=== PATIENT | female | born 1950 | race Caucasian/White ===

== ENCOUNTER 2017-06-18 09:29 | Outpatient (CLI) | payer OTHER ==
[~2017-06-18 09:29] MED LIST: ALLEGRA30 MG; CATAFLAM50 MG PO; CLONAZEPAM2 MG PO; ESTRACE42.5 GM; HYZAAR 100/25 T1 TAB PO; LOCOID15 GM; NEURONTIN300 MG PO; NORFLEX30 MG/ML IJ; NORVASC10 MG PO; PAXIL20 MG PO; PRILOSEC20 MG PO; SINGULAIR10 MG PO; SYNTHROID50 MCG PO; TOPROL XL25 M1; ULTRAM50 MG PO; VOLTAREN50 MG PO
== END 2017-06-18 09:33 | disposition home or self-care (01) ==
LOC: SONOGRAMA 09:29
DX: E04.2 Nontoxic multinodular goiter (principal)

== ENCOUNTER → 2017-06-21 13:34 | Outpatient (CLI) | payer OTHER | END | disposition home or self-care (01) | LOC: LAB 13:34 | DX: J11.1 Influenza due to unidentified influenza virus with other respiratory manifestations (principal); J45.31 Mild persistent asthma with (acute) exacerbation ==

== ENCOUNTER → 2017-06-21 13:36 | Outpatient (CLI) | payer OTHER | END | disposition home or self-care (01) | LOC: RAD 13:36 | DX: J11.1 Influenza due to unidentified influenza virus with other respiratory manifestations (principal); J45.31 Mild persistent asthma with (acute) exacerbation ==

== ENCOUNTER 2018-02-23 09:18 | Outpatient (CLI) | payer OTHER | END 2018-02-23 09:25 | disposition home or self-care (01) | LOC: LAB 09:18 | DX: E11.65 Type 2 diabetes mellitus with hyperglycemia (principal); E78.2 Mixed hyperlipidemia; D68.8 Other specified coagulation defects; E03.8 Other specified hypothyroidism; C18.7 Malignant neoplasm of sigmoid colon; Z85.038 Personal history of other malignant neoplasm of large intestine; D51.8 Other vitamin B12 deficiency anemias; Z86.010 Personal history of colon polyps; E55.9 Vitamin D deficiency, unspecified; I10 Essential (primary) hypertension; F41.3 Other mixed anxiety disorders; R97.0 Elevated carcinoembryonic antigen [CEA]; D51.1 Vitamin B12 deficiency anemia due to selective vitamin B12 malabsorption with proteinuria; D51.0 Vitamin B12 deficiency anemia due to intrinsic factor deficiency; D50.8 Other iron deficiency anemias; K90.89 Other intestinal malabsorption ==

== ENCOUNTER 2018-03-08 09:03 | Outpatient (CLI) | payer OTHER | END 2018-03-08 09:08 | disposition home or self-care (01) | LOC: SONOGRAMA 09:03 | DX: E04.2 Nontoxic multinodular goiter (principal) ==

== ENCOUNTER 2018-03-16 10:35 | Outpatient (CLI) | payer OTHER | END 2018-03-16 10:50 | disposition home or self-care (01) | LOC: MAMO-SONO 10:35 | DX: Z12.31 Encounter for screening mammogram for malignant neoplasm of breast (principal); Z87.898 Personal history of other specified conditions; N60.01 Solitary cyst of right breast ==

== ENCOUNTER → 2018-05-18 | Outpatient (CLI) | payer OTHER | END | disposition home or self-care (01) | LOC: RAD 10:20 | DX: M17.0 Bilateral primary osteoarthritis of knee (principal) ==

== ENCOUNTER 2018-06-30 20:01 | Emergency (ER) | payer OTHER ==
[~2018-06-30] VITALS: Ht 157.5 cm; Wt 113.4 kg
== END 2018-07-01 15:37 | disposition home or self-care (01) ==
LOC: ER 20:01
DX: K52.89 Other specified noninfective gastroenteritis and colitis (principal); B34.9 Viral infection, unspecified; R10.32 Left lower quadrant pain

== ENCOUNTER 2018-11-21 10:23 | Outpatient (CLI) | payer OTHER | END 2018-11-21 10:27 | disposition home or self-care (01) | LOC: TOM 10:23 | DX: J45.40 Moderate persistent asthma, uncomplicated (principal); R01.2 Other cardiac sounds ==

== ENCOUNTER 2019-03-22 10:49 | Outpatient (CLI) | payer OTHER | END 2019-03-22 11:01 | disposition home or self-care (01) | LOC: MAMO-SONO 10:49 | DX: Z12.31 Encounter for screening mammogram for malignant neoplasm of breast (principal); Z87.898 Personal history of other specified conditions; Z12.39 Encounter for other screening for malignant neoplasm of breast; E04.2 Nontoxic multinodular goiter ==

== ENCOUNTER 2019-08-21 11:03 | Outpatient (CLI) | payer OTHER | END 2019-08-21 11:10 | disposition home or self-care (01) | LOC: LAB 11:03 | DX: E11.65 Type 2 diabetes mellitus with hyperglycemia (principal); D64.89 Other specified anemias; N39.0 Urinary tract infection, site not specified; E03.8 Other specified hypothyroidism; E78.2 Mixed hyperlipidemia; Z12.11 Encounter for screening for malignant neoplasm of colon; R00.2 Palpitations; I11.9 Hypertensive heart disease without heart failure; C18.7 Malignant neoplasm of sigmoid colon; Z85.038 Personal history of other malignant neoplasm of large intestine; D51.8 Other vitamin B12 deficiency anemias; Z86.010 Personal history of colon polyps; E55.9 Vitamin D deficiency, unspecified; F41.3 Other mixed anxiety disorders; R97.0 Elevated carcinoembryonic antigen [CEA]; D50.8 Other iron deficiency anemias; D51.1 Vitamin B12 deficiency anemia due to selective vitamin B12 malabsorption with proteinuria; D51.0 Vitamin B12 deficiency anemia due to intrinsic factor deficiency ==

== ENCOUNTER 2019-08-23 10:43 | Outpatient (CLI) | payer OTHER | END 2019-08-23 10:46 | disposition home or self-care (01) | LOC: LAB 10:43 | DX: E11.65 Type 2 diabetes mellitus with hyperglycemia (principal); D64.89 Other specified anemias; N39.0 Urinary tract infection, site not specified; E78.2 Mixed hyperlipidemia; Z12.11 Encounter for screening for malignant neoplasm of colon ==

== ENCOUNTER 2020-02-29 07:14 | Outpatient (CLI) | payer OTHER | END 2020-02-29 07:22 | disposition home or self-care (01) | LOC: LAB 07:14 | PROVIDERS: ATTEND Internal Medicine Hematology & Oncology | DX: D50.8 Other iron deficiency anemias (principal); I10 Essential (primary) hypertension; D51.8 Other vitamin B12 deficiency anemias; E55.9 Vitamin D deficiency, unspecified; R97.0 Elevated carcinoembryonic antigen [CEA]; R97.8 Other abnormal tumor markers; C18.7 Malignant neoplasm of sigmoid colon; E51.8 Other manifestations of thiamine deficiency; F41.3 Other mixed anxiety disorders ==

== ENCOUNTER → 2020-04-15 09:37 | Outpatient (CLI) | payer OTHER | END | disposition home or self-care (01) | LOC: LAB 09:37 | PROVIDERS: ATTEND Specialist | DX: E11.65 Type 2 diabetes mellitus with hyperglycemia (principal); D68.8 Other specified coagulation defects; D64.1 Secondary sideroblastic anemia due to disease ==

== ENCOUNTER 2020-06-15 16:33 | Emergency (ER) | payer OTHER ==
[~2020-06-15] VITALS: Ht 152.4 cm; Wt 113.4 kg
[2020-06-15] MEDS ORDERED: CANDESARTAN-HC1 EAC2 (16:40)
[2020-06-15] MEDS ORDERED: ZANAFLEX4 M1 (16:44)
== END 2020-06-15 19:36 | disposition home or self-care (01) ==
LOC: ER 16:33
DX: M48.061 Spinal stenosis, lumbar region without neurogenic claudication (principal); M51.37 Other intervertebral disc degeneration, lumbosacral region; M54.16 Radiculopathy, lumbar region

== ENCOUNTER 2020-07-30 09:40 | Outpatient (CLI) | payer OTHER ==
[~2020-07-30 09:40] MED LIST changes: +CANDESARTAN-HC1 EAC2; +ZANAFLEX4 M1
== END 2020-07-30 09:49 | disposition home or self-care (01) ==
LOC: LAB 09:40
PROVIDERS: ATTEND Specialist
DX: J45.998 Other asthma (principal); N39.0 Urinary tract infection, site not specified; E11.65 Type 2 diabetes mellitus with hyperglycemia; Z20.828 Contact with and (suspected) exposure to other viral communicable diseases; E55.9 Vitamin D deficiency, unspecified; E78.2 Mixed hyperlipidemia; E03.8 Other specified hypothyroidism; Z12.11 Encounter for screening for malignant neoplasm of colon; C18.7 Malignant neoplasm of sigmoid colon; Z85.038 Personal history of other malignant neoplasm of large intestine; D51.8 Other vitamin B12 deficiency anemias; Z86.010 Personal history of colon polyps; I10 Essential (primary) hypertension; F41.3 Other mixed anxiety disorders; R97.0 Elevated carcinoembryonic antigen [CEA]; R97.8 Other abnormal tumor markers; D50.8 Other iron deficiency anemias

== ENCOUNTER 2020-07-31 11:26 | Outpatient (CLI) | payer OTHER | END 2020-07-31 11:28 | disposition home or self-care (01) | LOC: LAB 11:26 | PROVIDERS: ATTEND Specialist | DX: U07.1 COVID-19 (principal); J45.998 Other asthma; E11.65 Type 2 diabetes mellitus with hyperglycemia; N39.0 Urinary tract infection, site not specified; E55.9 Vitamin D deficiency, unspecified; E78.2 Mixed hyperlipidemia; E03.8 Other specified hypothyroidism; Z12.11 Encounter for screening for malignant neoplasm of colon ==

== ENCOUNTER 2020-10-01 10:33 | Outpatient (CLI) | payer OTHER | END 2020-10-01 10:58 | disposition home or self-care (01) | LOC: RAD 10:33 | PROVIDERS: ATTEND Orthopaedic Surgery Adult Reconstructive Orthopaedic Surgery | DX: I11.9 Hypertensive heart disease without heart failure (principal); M16.10 Unilateral primary osteoarthritis, unspecified hip; M17.10 Unilateral primary osteoarthritis, unspecified knee ==

== ENCOUNTER → 2020-10-30 08:50 | Outpatient (CLI) | payer OTHER | END | disposition home or self-care (01) | LOC: LAB 08:50 | PROVIDERS: ATTEND Specialist | DX: E11.65 Type 2 diabetes mellitus with hyperglycemia (principal); E03.8 Other specified hypothyroidism ==

== ENCOUNTER 2021-01-01 11:56 | Outpatient (CLI) | payer OTHER | END 2021-01-01 12:04 | disposition home or self-care (01) | LOC: SONOGRAMA 11:56 → MAMO-SONO 14:00 | PROVIDERS: ATTEND Specialist | DX: E04.2 Nontoxic multinodular goiter (principal); E03.8 Other specified hypothyroidism ==

== ENCOUNTER 2021-01-28 09:47 | Outpatient (CLI) | payer OTHER | END 2021-01-28 09:53 | disposition home or self-care (01) | LOC: LAB 09:47 | PROVIDERS: ATTEND Specialist | DX: C18.7 Malignant neoplasm of sigmoid colon (principal); E78.2 Mixed hyperlipidemia; E11.65 Type 2 diabetes mellitus with hyperglycemia; D64.89 Other specified anemias; R00.2 Palpitations; E11.9 Type 2 diabetes mellitus without complications; D50.8 Other iron deficiency anemias; I10 Essential (primary) hypertension; R74.02 Elevation of levels of lactic acid dehydrogenase [LDH]; K76.89 Other specified diseases of liver; D51.8 Other vitamin B12 deficiency anemias; E55.9 Vitamin D deficiency, unspecified; R97.0 Elevated carcinoembryonic antigen [CEA]; R97.8 Other abnormal tumor markers; Z85.038 Personal history of other malignant neoplasm of large intestine; Z86.010 Personal history of colon polyps; F41.3 Other mixed anxiety disorders ==

== ENCOUNTER 2021-02-13 09:17 | Outpatient (CLI) | payer OTHER | END 2021-02-13 09:22 | disposition home or self-care (01) | LOC: SONOGRAMA 09:17 | PROVIDERS: ATTEND Pathology Anatomic Pathology & Clinical Pathology | DX: D34 Benign neoplasm of thyroid gland (principal); E07.89 Other specified disorders of thyroid ==

== ENCOUNTER → 2021-03-31 | Outpatient (CLI) | payer OTHER | END | disposition home or self-care (01) | LOC: MAMO-SONO 12:53 | PROVIDERS: ATTEND Internal Medicine Hematology & Oncology | DX: R92.0 Mammographic microcalcification found on diagnostic imaging of breast (principal); Z12.31 Encounter for screening mammogram for malignant neoplasm of breast; R97.0 Elevated carcinoembryonic antigen [CEA]; C18.7 Malignant neoplasm of sigmoid colon; Z85.038 Personal history of other malignant neoplasm of large intestine; D51.8 Other vitamin B12 deficiency anemias; Z86.010 Personal history of colon polyps; E55.9 Vitamin D deficiency, unspecified; I10 Essential (primary) hypertension; F41.3 Other mixed anxiety disorders ==

== ENCOUNTER 2021-07-11 10:51 | Outpatient (CLI) | payer OTHER | END 2021-07-11 11:00 | disposition home or self-care (01) | LOC: LAB 10:51 | PROVIDERS: ATTEND Specialist | DX: J45.998 Other asthma (principal); E03.8 Other specified hypothyroidism; E11.21 Type 2 diabetes mellitus with diabetic nephropathy; N39.8 Other specified disorders of urinary system; E78.2 Mixed hyperlipidemia; E11.65 Type 2 diabetes mellitus with hyperglycemia; Z12.11 Encounter for screening for malignant neoplasm of colon; D64.89 Other specified anemias; D50.8 Other iron deficiency anemias; I10 Essential (primary) hypertension; R74.02 Elevation of levels of lactic acid dehydrogenase [LDH]; K76.89 Other specified diseases of liver; D51.8 Other vitamin B12 deficiency anemias; R97.0 Elevated carcinoembryonic antigen [CEA]; R97.8 Other abnormal tumor markers; C18.7 Malignant neoplasm of sigmoid colon; Z85.038 Personal history of other malignant neoplasm of large intestine; Z86.010 Personal history of colon polyps; E55.9 Vitamin D deficiency, unspecified; F41.3 Other mixed anxiety disorders; R00.2 Palpitations; I11.9 Hypertensive heart disease without heart failure ==

== ENCOUNTER 2021-10-15 09:31 | Outpatient (CLI) | payer OTHER | END 2021-10-15 09:38 | disposition home or self-care (01) | LOC: LAB 09:31 | PROVIDERS: ATTEND Specialist | DX: E03.9 Hypothyroidism, unspecified (principal); N39.9 Disorder of urinary system, unspecified; E78.2 Mixed hyperlipidemia; N25.81 Secondary hyperparathyroidism of renal origin ==

== ENCOUNTER 2022-02-05 09:14 | Outpatient (CLI) | payer OTHER | END 2022-02-05 09:23 | disposition home or self-care (01) | LOC: LAB 09:14 | PROVIDERS: ATTEND Specialist | DX: C18.7 Malignant neoplasm of sigmoid colon (principal); D51.8 Other vitamin B12 deficiency anemias; E55.9 Vitamin D deficiency, unspecified; F41.3 Other mixed anxiety disorders; R97.0 Elevated carcinoembryonic antigen [CEA]; Z86.010 Personal history of colon polyps; R00.2 Palpitations; E78.2 Mixed hyperlipidemia; I11.9 Hypertensive heart disease without heart failure; E11.21 Type 2 diabetes mellitus with diabetic nephropathy; D64.9 Anemia, unspecified; E11.65 Type 2 diabetes mellitus with hyperglycemia; J45.998 Other asthma ==

== ENCOUNTER 2022-05-19 09:19 | Outpatient (CLI) | payer OTHER | END 2022-05-19 09:20 | disposition home or self-care (01) | LOC: LAB 09:19 | PROVIDERS: ATTEND Specialist | DX: E03.8 Other specified hypothyroidism (principal); Z13.220 Encounter for screening for lipoid disorders; E11.69 Type 2 diabetes mellitus with other specified complication; N39.9 Disorder of urinary system, unspecified; D64.89 Other specified anemias; E11.21 Type 2 diabetes mellitus with diabetic nephropathy; M00.80 Arthritis due to other bacteria, unspecified joint ==

== ENCOUNTER 2022-05-19 11:27 | Outpatient (CLI) | payer OTHER | END 2022-05-19 11:33 | disposition home or self-care (01) | LOC: MAMO-SONO 11:27 | PROVIDERS: ATTEND Internal Medicine Hematology & Oncology | DX: Z12.31 Encounter for screening mammogram for malignant neoplasm of breast (principal); N63.0 Unspecified lump in unspecified breast; N64.4 Mastodynia ==

== ENCOUNTER 2022-06-09 16:09 | Emergency (ER) | payer OTHER ==
[~2022-06-09] VITALS: Ht 154.9 cm; Wt 108.9 kg
== END 2022-06-09 20:38 | disposition home or self-care (01) ==
LOC: ER 16:09
DX: R05.9 Cough, unspecified (principal); Z91.013 Allergy to seafood; Z20.822 Contact with and (suspected) exposure to COVID-19; Z88.2 Allergy status to sulfonamides

== ENCOUNTER 2022-09-04 14:19 | Emergency (ER) | payer OTHER ==
[~2022-09-04] VITALS: Ht 157.5 cm; Wt 116.6 kg
== END 2022-09-04 18:46 | disposition home or self-care (01) ==
LOC: ER 14:19
DX: R50.9 Fever, unspecified (principal); R05.9 Cough, unspecified; R30.0 Dysuria; Z88.2 Allergy status to sulfonamides; Z91.013 Allergy to seafood; Z20.822 Contact with and (suspected) exposure to COVID-19

== ENCOUNTER 2022-10-06 09:00 | Outpatient (CLI) | payer OTHER | END 2022-10-06 09:01 | disposition home or self-care (01) | LOC: LAB 09:00 | PROVIDERS: ATTEND Specialist | DX: D50.8 Other iron deficiency anemias (principal); I10 Essential (primary) hypertension; R74.02 Elevation of levels of lactic acid dehydrogenase [LDH]; K76.89 Other specified diseases of liver; D51.8 Other vitamin B12 deficiency anemias; E55.9 Vitamin D deficiency, unspecified; C50.919 Malignant neoplasm of unspecified site of unspecified female breast; R97.8 Other abnormal tumor markers; R97.0 Elevated carcinoembryonic antigen [CEA] ==

== ENCOUNTER 2022-10-06 10:59 | Outpatient (CLI) | payer OTHER | END 2022-10-06 11:00 | disposition home or self-care (01) | LOC: NUCLEAR 10:59 | PROVIDERS: ATTEND Internal Medicine Rheumatology | DX: M81.0 Age-related osteoporosis without current pathological fracture (principal) ==

== ENCOUNTER 2023-01-07 09:32 | Outpatient (CLI) | payer OTHER | END 2023-01-07 09:35 | disposition home or self-care (01) | LOC: LAB 09:32 | PROVIDERS: ATTEND Specialist | DX: E03.8 Other specified hypothyroidism (principal); R07.89 Other chest pain; Z13.220 Encounter for screening for lipoid disorders; D64.89 Other specified anemias; N39.9 Disorder of urinary system, unspecified; E11.69 Type 2 diabetes mellitus with other specified complication; D50.8 Other iron deficiency anemias; I10 Essential (primary) hypertension; R74.02 Elevation of levels of lactic acid dehydrogenase [LDH]; K76.89 Other specified diseases of liver; C18.7 Malignant neoplasm of sigmoid colon; Z85.038 Personal history of other malignant neoplasm of large intestine; D51.8 Other vitamin B12 deficiency anemias; Z86.010 Personal history of colon polyps; E55.9 Vitamin D deficiency, unspecified; F41.3 Other mixed anxiety disorders; R97.0 Elevated carcinoembryonic antigen [CEA] ==

== ENCOUNTER 2023-01-07 10:07 | Outpatient (CLI) | payer OTHER | END 2023-01-07 10:11 | disposition home or self-care (01) | LOC: RAD 10:07 | PROVIDERS: ATTEND Specialist | DX: J45.991 Cough variant asthma (principal) ==

== ENCOUNTER 2023-01-25 13:29 | Outpatient (CLI) | payer OTHER | END 2023-01-25 13:39 | disposition home or self-care (01) | LOC: SONOGRAMA 13:29 | PROVIDERS: ATTEND Internal Medicine Endocrinology, Diabetes & Metabolism | DX: E04.2 Nontoxic multinodular goiter (principal) ==

== ENCOUNTER → 2023-02-04 | Outpatient (CLI) | payer OTHER | END | disposition home or self-care (01) | LOC: SONOGRAMA 09:12 | PROVIDERS: ATTEND Pathology Anatomic Pathology & Clinical Pathology | DX: D34 Benign neoplasm of thyroid gland (principal); E04.9 Nontoxic goiter, unspecified ==

== ENCOUNTER 2023-05-29 09:11 | Outpatient (CLI) | payer OTHER ==
[2023-05-29 10:01] LABS: URINE APPEARANCE Clear; URINE BILIRRUBIN Negative (NEGATIVE); URINE BLOOD Negative; URINE COLOR Yellow; URINE GLUCOSE Negative (NEGATIVE); URINE LEUKOCYTE Trace; URINE NITRATE Negative; URINE PROTEIN Negative (NEGATIVE); URINE UROBILINOGEN 0.2 E.U./dl
[2023-05-29 10:05] LABS: URINE BACTERIA 23.9 uL (0.0-1933); URINE EPITHELIAL CELLS 5.9 uL (0.0-38.8); URINE RBC 5.6 uL (0.0-20.8)
[2023-05-29 10:37] LABS: ALBUMIN 3.6 gm/dL (3.4-5.0); BILIRUBIN TOTAL 0.5 mg/dL (0.3-1.2); CREATININE SERUM 0.73 mg/dL (0.55-1.02); GFR 78.15; GLOBULINA 3.3 G/DL (2.4-3.5); POTASSIUM 4.49 mEq/L (3.5-5.1); TOTAL PROTEIN 6.9 gm/dL (6.4-8.2)
[2023-05-29 11:12] LABS: HEMATOCRIT 42.1 % (36.0-45.00); HEMOGLOBIN 14.2 g/dL (12.0-15.00); MEAN CELL VOLUME 92.2 fL (80.00-100.00); MEAN CORPUSCULAR HEMOGLOBIN 31.1 pg (27.00-32.0); MEAN CORPUSCULAR HGB CONC 33.7 g/dl (32.0-36.0); PLATELET COUNT 257 K/uL (150-450); RED BLOOD COUNT 4.57 M/uL (4.00-6.00); RED CELL DISTRIBUTION WIDTH 14.6 % (11.5-14.5)
== END 2023-05-29 09:19 | disposition home or self-care (01) ==
LOC: LAB 09:11
PROVIDERS: ATTEND Specialist
DX: D64.89 Other specified anemias (principal); E11.69 Type 2 diabetes mellitus with other specified complication; E11.21 Type 2 diabetes mellitus with diabetic nephropathy; N39.9 Disorder of urinary system, unspecified; Z13.220 Encounter for screening for lipoid disorders

== ENCOUNTER 2023-06-18 14:48 | Emergency (ER) | payer OTHER ==
[~2023-06-18] VITALS: Ht 157.5 cm; Wt 113.9 kg
[2023-06-18] MEDS ORDERED: LODINE300 MG PO (15:36)
[2023-06-18 17:25] LABS: URINE APPEARANCE Clear; URINE BILIRRUBIN Negative (NEGATIVE); URINE BLOOD Negative; URINE COLOR Yellow; URINE GLUCOSE Negative (NEGATIVE); URINE LEUKOCYTE Trace; URINE NITRATE Negative; URINE PROTEIN Negative (NEGATIVE); URINE UROBILINOGEN 0.2 E.U./dl
[2023-06-18 17:26] LABS: URINE BACTERIA 30.2 uL (0.0-1933); URINE EPITHELIAL CELLS 2.7 uL (0.0-38.8); URINE RBC 3.4 uL (0.0-20.8); URINE WBC 7.8 uL (0.0-23.2)
[2023-06-18] MEDS ORDERED: ADVIL DUAL ACT1 EACH PO (18:11)
== END 2023-06-18 18:26 | disposition home or self-care (01) ==
LOC: ER 14:49
PROVIDERS: Emergency Medicine
DX: M54.50 Low back pain, unspecified (principal); Z88.2 Allergy status to sulfonamides; Z91.013 Allergy to seafood; E03.9 Hypothyroidism, unspecified; I11.9 Hypertensive heart disease without heart failure; Z87.39 Personal history of other diseases of the musculoskeletal system and connective tissue
CPT/HCPCS: 96365; 96372; 99284; J1885; J2360; J2920

== ENCOUNTER 2024-01-15 09:37 | Outpatient (CLI) | payer OTHER ==
[~2024-01-15 09:37] MED LIST changes: +ADVIL DUAL ACT1 EACH PO; +LODINE300 MG PO
== END 2024-01-15 09:45 | disposition home or self-care (01) ==
LOC: RAD 09:37
PROVIDERS: ATTEND Specialist
DX: J45.22 Mild intermittent asthma with status asthmaticus (principal)

== ENCOUNTER 2024-03-09 09:42 | Outpatient (CLI) | payer OTHER | END 2024-03-09 10:01 | disposition home or self-care (01) | LOC: TOM 09:42 | PROVIDERS: ATTEND Specialist | DX: K57.92 Diverticulitis of intestine, part unspecified, without perforation or abscess without bleeding (principal) | CPT/HCPCS: 74177; Q9965 ==

== ENCOUNTER 2024-04-06 07:26 | Outpatient (CLI) | payer OTHER | END 2024-04-06 07:27 | disposition home or self-care (01) | LOC: NUCLEAR 07:26 | PROVIDERS: ATTEND Specialist | DX: N25.81 Secondary hyperparathyroidism of renal origin (principal); D35.1 Benign neoplasm of parathyroid gland | CPT/HCPCS: 78070; A9500 ==

== ENCOUNTER 2024-05-08 12:58 | Outpatient (CLI) | payer OTHER | END 2024-05-08 13:06 | disposition home or self-care (01) | LOC: MAMO-SONO 12:58 | PROVIDERS: ATTEND Internal Medicine Hematology & Oncology | DX: N63.0 Unspecified lump in unspecified breast (principal); N64.4 Mastodynia; C18.7 Malignant neoplasm of sigmoid colon; Z85.038 Personal history of other malignant neoplasm of large intestine; D51.3 Other dietary vitamin B12 deficiency anemia; Z86.0100 Personal history of colon polyps, unspecified; E55.9 Vitamin D deficiency, unspecified; I10 Essential (primary) hypertension; F41.3 Other mixed anxiety disorders; R97.0 Elevated carcinoembryonic antigen [CEA]; Z12.31 Encounter for screening mammogram for malignant neoplasm of breast ==

== ENCOUNTER 2024-05-25 12:20 | Outpatient (CLI) | payer OTHER | END 2024-05-25 12:31 | disposition home or self-care (01) | LOC: RAD 12:20 | PROVIDERS: ATTEND Internal Medicine Rheumatology | DX: D17.22 Benign lipomatous neoplasm of skin and subcutaneous tissue of left arm (principal); D17.9 Benign lipomatous neoplasm, unspecified ==

== ENCOUNTER 2024-05-30 07:07 | Outpatient (CLI) | payer OTHER | END 2024-05-30 07:09 | disposition home or self-care (01) | LOC: NUCLEAR 07:07 | PROVIDERS: ATTEND Internal Medicine | DX: I20.9 Angina pectoris, unspecified (principal) | CPT/HCPCS: 78452; 93017; A9500; J0153 ==

== ENCOUNTER 2024-09-01 12:02 | Outpatient (CLI) | payer OTHER | END 2024-09-01 12:05 | disposition home or self-care (01) | LOC: SONOGRAMA 12:02 | PROVIDERS: ATTEND Internal Medicine Endocrinology, Diabetes & Metabolism | DX: E04.2 Nontoxic multinodular goiter (principal) ==

== ENCOUNTER 2024-11-30 12:24 | Outpatient (CLI) | payer OTHER | END 2024-11-30 12:27 | disposition home or self-care (01) | LOC: SONOGRAMA 12:24 | PROVIDERS: ATTEND Pathology Anatomic Pathology & Clinical Pathology | DX: D34 Benign neoplasm of thyroid gland (principal); E07.89 Other specified disorders of thyroid; E04.2 Nontoxic multinodular goiter ==

== ENCOUNTER 2025-03-10 23:33 | Emergency (ER) | payer OTHER ==
[~2025-03-10] VITALS: Ht 160 cm; Wt 117.9 kg
[2025-03-11] MEDS ORDERED: 0.9 % SODIUM CHLORIDE 1,000 ML IV STA (00:06)
[2025-03-11] MEDS ORDERED: FAMOTIDINE/PF 20 MG/2 ML VIAL IV STA (00:07)
[2025-03-11] MEDS ORDERED: ONDANSETRON HCL 2 MG/ML VIAL IV ONE (00:15)
[2025-03-11] MEDS ORDERED: ONDANSETRON HCL 2 MG/ML VIAL ONE (00:44)
[2025-03-11] MEDS ORDERED: FAMOTIDINE/PF 20 MG/2 ML VIAL ONE (00:45)
[2025-03-11 01:32] LABS: BASO % 0.6 % (0.1-1.2); EOS # 0.04 (0.04-0.54); EOS % 0.6 % (0.7-7.0); LYMPH # 1.60 (1.18-3.74); LYMPH % 23.3 % (19.3-53.1); MEAN PLATELET VOLUME 10.20 fl (9.4-12.4); MONO # 0.51 (0.24-0.82); MONO % 7.4 % (4.7-12.5); NEUT # 4.65 (1.56-6.13); NEUT % 67.8 % (34.0-71.1); RED CELL DISTRIBUTION WIDTH 13.2 % (11.6-14.4)
[2025-03-11 02:11] LABS: ALT/SGPT 27.0 U/L (12-78); AST/SGOT 34.0 U/L (15-37); BILIRUBIN TOTAL 0.31 mg/dL (0.3-1.2); BUN CREA RATIO 28.0 (7.0-25.0); CKMB 1.1 NG/ML (0.5-3.6); CREATININE SERUM 0.65 mg/dL (0.55-1.02); GFR 89.1; GLOBULINA 3.6 G/DL (2.4-3.5); GLUCOSE FASTING 128.0 mg/dL (65-100); OSMOLALITY SERUM 287.0 MOSM/KG (275-295)
[2025-03-11 04:13] LABS: URINE APPEARANCE Clear; URINE BILIRRUBIN Negative (NEGATIVE); URINE BLOOD Negative; URINE COLOR Yellow; URINE GLUCOSE Negative (NEGATIVE); URINE KETONE Negative (NEGATIVE); URINE LEUKOCYTE Small; URINE NITRATE Negative; URINE PROTEIN Negative (NEGATIVE); URINE UROBILINOGEN 0.2 E.U./dl
[2025-03-11 04:17] LABS: URINE BACTERIA 119.9 uL (0.0-1933); URINE EPITHELIAL CELLS 7.6 uL (0.0-38.8); URINE RBC 6.0 uL (0.0-20.8); URINE WBC 35.6 uL (0.0-23.2)
[2025-03-11 04:25] LABS: TYPE CELLS SQUAMOUS; URINE CAST 0.58 uL (0.0-1.40)
== END 2025-03-11 06:23 | disposition home or self-care (01) ==
LOC: ER 23:33
PROVIDERS: Physician Assistant Medical
DX: N39.0 Urinary tract infection, site not specified (principal); K52.9 Noninfective gastroenteritis and colitis, unspecified; E86.0 Dehydration; R11.10 Vomiting, unspecified; I10 Essential (primary) hypertension; E03.8 Other specified hypothyroidism; Z88.2 Allergy status to sulfonamides; Z91.013 Allergy to seafood
CPT/HCPCS: 36415; 93005; 96365; 96366; 99282; J2405; J3490; J7030

== ENCOUNTER 2025-04-13 20:26 | Emergency (ER) | payer OTHER ==
[~2025-04-13] VITALS: Ht 160 cm; Wt 117.5 kg
[2025-04-13] MEDS ORDERED: ONDANSETRON HCL 2 MG/ML VIAL IV STA (21:55)
[2025-04-13] MEDS ORDERED: FAMOTIDINE/PF 20 MG/2 ML VIAL IV PUSH STA (21:55)
[2025-04-13] MEDS ORDERED: ONDANSETRON HCL 2 MG/ML VIAL ONE (22:22)
[2025-04-13] MEDS ORDERED: FAMOTIDINE/PF 20 MG/2 ML VIAL ONE (22:22)
[2025-04-13 23:13] LABS: BASO % 0.3 % (0.1-1.2); EOS # 0.08 (0.04-0.54); EOS % 1.3 % (0.7-7.0); LYMPH # 1.77 (1.18-3.74); LYMPH % 28.2 % (19.3-53.1); MEAN PLATELET VOLUME 9.80 fl (9.4-12.4); MONO # 0.60 (0.24-0.82); MONO % 9.6 % (4.7-12.5); NEUT # 3.78 (1.56-6.13); NEUT % 60.3 % (34.0-71.1); RED CELL DISTRIBUTION WIDTH 12.6 % (11.6-14.4)
[2025-04-13 23:35] LABS: ALT/SGPT 18.0 U/L (12-78); AST/SGOT 17.0 U/L (15-37); BILIRUBIN TOTAL 0.42 mg/dL (0.3-1.2); BUN CREA RATIO 15.0 (7.0-25.0); CREATININE SERUM 0.6 mg/dL (0.55-1.02); GFR 97.46; GLOBULINA 3.7 G/DL (2.4-3.5); GLUCOSE FASTING 99.0 mg/dL (65-100); OSMOLALITY SERUM 269.0 MOSM/KG (275-295)
[2025-04-14] MEDS ORDERED: KETOROLAC TROMETHAMINE 30 MG VIAL IM STA (00:02)
[2025-04-14] MEDS ORDERED: KETOROLAC TROMETHAMINE 30 MG VIAL ONE (00:12)
== END 2025-04-14 00:34 | disposition home or self-care (01) ==
LOC: ER 20:26
PROVIDERS: General Practice
DX: K29.70 Gastritis, unspecified, without bleeding (principal); Z88.2 Allergy status to sulfonamides; Z91.013 Allergy to seafood

== ENCOUNTER 2025-04-14 12:11 | Emergency (ER) | payer OTHER ==
[~2025-04-14] VITALS: Ht 160 cm; Wt 117.5 kg
[2025-04-14] MEDS ORDERED: FAMOtidine 10 MG/ML (4ML VIAL) IV PUSH ONE (13:00)
[2025-04-14] MEDS ORDERED: KETOROLAC TROMETHAMINE 30 MG VIAL IV ONE (13:00)
[2025-04-14] MEDS ORDERED: FAMOTIDINE/PF 20 MG/2 ML VIAL ONE (15:49)
[2025-04-14] MEDS ORDERED: KETOROLAC TROMETHAMINE 30 MG VIAL ONE (15:49)
[2025-04-14 16:29] LABS: BASO % 0.5 % (0.1-1.2); EOS # 0.06 (0.04-0.54); EOS % 0.9 % (0.7-7.0); LYMPH # 1.71 (1.18-3.74); LYMPH % 26.8 % (19.3-53.1); MEAN PLATELET VOLUME 9.20 fl (9.4-12.4); MONO # 0.50 (0.24-0.82); MONO % 7.8 % (4.7-12.5); NEUT # 4.05 (1.56-6.13); NEUT % 63.7 % (34.0-71.1); RED CELL DISTRIBUTION WIDTH 12.4 % (11.6-14.4)
[2025-04-14 17:02] LABS: URINE APPEARANCE Clear; URINE BILIRRUBIN Negative (NEGATIVE); URINE BLOOD Trace; URINE COLOR Yellow; URINE GLUCOSE Negative (NEGATIVE); URINE KETONE Negative (NEGATIVE); URINE LEUKOCYTE Moderate; URINE NITRATE Negative; URINE PROTEIN Negative (NEGATIVE); URINE UROBILINOGEN 0.2 E.U./dl
[2025-04-14 17:06] LABS: URINE BACTERIA 44.3 uL (0.0-1933); URINE EPITHELIAL CELLS 9.6 uL (0.0-38.8); URINE RBC 9.5 uL (0.0-20.8); URINE WBC 104.6 uL (0.0-23.2)
[2025-04-14 17:07] LABS: ALT/SGPT 16.0 U/L (12-78); AST/SGOT 19.0 U/L (15-37); BILIRUBIN TOTAL 0.54 mg/dL (0.3-1.2); BUN CREA RATIO 13.0 (7.0-25.0); CREATININE SERUM 0.6 mg/dL (0.55-1.02); GFR 97.46; GLOBULINA 3.6 G/DL (2.4-3.5); GLUCOSE FASTING 102.0 mg/dL (65-100); OSMOLALITY SERUM 263.0 MOSM/KG (275-295)
[2025-04-14 17:31] LABS: URINE CAST 0.00 uL (0.0-1.40)
[2025-04-14 17:45] LABS: COVID-19 AG NEGATIVE (NEGATIVE)
[2025-04-14] MEDS ORDERED: CEFTRIAXONE SODIUM 1,000 MG VIAL IM STA (20:48)
[2025-04-14] MEDS ORDERED: CEFTRIAXONE SODIUM 1,000 MG VIAL ONE (21:20)
[2025-04-14] MEDS ORDERED: LIDOCAINE HCL 1% 10ML VIAL ONE (21:20)
[2025-04-14] MEDS ORDERED: POVIDONE-IODINE 118 ML BOTT TOP ONE (21:20)
== END 2025-04-14 21:49 | disposition home or self-care (01) ==
LOC: ER 12:11
PROVIDERS: General Practice
DX: K29.70 Gastritis, unspecified, without bleeding (principal); R10.9 Unspecified abdominal pain; I10 Essential (primary) hypertension; Z20.822 Contact with and (suspected) exposure to COVID-19; Z91.013 Allergy to seafood; Z88.2 Allergy status to sulfonamides

== ENCOUNTER → 2025-04-27 07:52 | Outpatient (CLI) | payer OTHER | END | disposition home or self-care (01) | LOC: SONOGRAMA 07:52 | DX: R16.1 Splenomegaly, not elsewhere classified (principal) ==

== ENCOUNTER 2025-05-23 10:34 | Outpatient (CLI) | payer OTHER | END 2025-05-23 10:35 | disposition home or self-care (01) | LOC: NUCLEAR 10:34 | PROVIDERS: ATTEND Internal Medicine Rheumatology | DX: M81.0 Age-related osteoporosis without current pathological fracture (principal) ==